=== PATIENT | male | born 1995 | race African-American/Black ===

== ENCOUNTER 2022-07-22 16:43 | Emergency (ER) | payer OTHER | END 2022-07-22 17:22 | disposition home or self-care (01) | LOC: CSHERS 16:43 | DX: U07.1 COVID-19 (principal); J20.8 Acute bronchitis due to other specified organisms; E11.9 Type 2 diabetes mellitus without complications; I10 Essential (primary) hypertension | CPT/HCPCS: 99283; U0003; U0005 ==